=== PATIENT | male | born 2000 | race Caucasian/White ===

== ENCOUNTER 2020-12-10 16:18 | Emergency (ER) | payer BC ==
[2020-12-10 16:56] LABS: BILIRUBIN,URINE NEGATIVE (NEGATIVE); CLARITY,URINE CLEAR (CLEAR); GLUCOSE, URINE (UA) NEGATIVE (NEGATIVE); KETONES,URINE (UA) NEGATIVE (NEGATIVE); LEUKOCYTE ESTERASE, URINE NEGATIVE (NEGATIVE); NITRITE,URINE NEGATIVE (NEGATIVE); OCCULT BLOOD,URINE NEGATIVE (NEGATIVE); PROTEIN,URINE NEGATIVE (NEGATIVE); UROBILINOGEN,URINE 0.2 (NORMAL) E.U./dL (NORMAL)
--- NOTE | 2020-12-10 16:59 | ED Physician Documentation ---
History of Present Illness - Stated complaint Stated Complaint: MALE - Chief complaint Chief Complaint: General - History obtained from History obtained from: Patient - History of Present Illness Timing: Today Pain level max: 4 Pain level now: 2 - Additonal information Additional information: Patient is 20-year-old male who presents to the emergency department left testicular pain today. He states it is mild in nature, a dull ache. He states that it is "not ambient pain". He denies any change in sexual partners. Denies any dysuria, discharge. No swelling. Pain is not sharp. He was seen at the walk-in clinic and sent here for an ultrasound. Review of Systems Constitutional: denies: Fever, Chills Respiratory: denies: Cough GI: denies: Vomiting, Diarrhea : denies: Dysuria, Frequency, Hesitancy Skin: denies: Rash PD PAST MEDICAL HISTORY - Past Medical History Past Medical History: No - Past Surgical History Past Surgical History: No - Allergies Allergies/Adverse Reactions: Allergies Allergy/AdvReac Type Severity Reaction Status Date / Time No Known Drug Allergies Allergy Verified 12/10/20 16:31 PD ED PE NORMAL - Vitals Vital signs reviewed: Yes - General General: Alert and oriented X 3, No acute distress - HEENT HEENT: Moist mucous membranes - Neck Neck: Supple, no meningeal sign - Cardiac Cardiac: RRR - Respiratory Respiratory: No respiratory distress, Clear bilaterally - Male Male : Other (Normal examination of the scrotum, testicles and penis. No lesions. Normal lie. Normal cremasteric reflex.) - Derm Derm: Warm and dry - Neuro Neuro: Alert and oriented X 3 Results - Vitals Vitals: Vital Signs - 24 hr 12/10/20 12/10/20 16:27 18:11 Temperature 36.8 C Heart Rate 100 104 H Respiratory 16 14 Rate Blood Pressure 155/101 H 172/87 H O2 Saturation 100 100 Oxygen O2 Source Room air - Labs Labs: Laboratory Tests 12/10/20 16:40 Urine Color YELLOW Urine Clarity CLEAR Urine pH 6.0 Ur Specific [place] <=1.005 Urine Protein NEGATIVE Urine Glucose (UA) NEGATIVE Urine Ketones NEGATIVE Urine Occult Blood NEGATIVE Urine Nitrite NEGATIVE Urine Bilirubin NEGATIVE Urine Urobilinogen 0.2 (NORMAL) Ur Leukocyte Esterase NEGATIVE Urine RBC Cancelled Urine WBC Cancelled Urine WBC Clumps Cancelled Ur Epithelial Cells Cancelled Ur Squamous Epith Cells Cancelled Urine Crystals Cancelled Amorphous Sediment Cancelled Urine Bacteria Cancelled Urine Casts Cancelled Urine Starch Cancelled Urine Mucus Cancelled Urine Trichomonas Cancelled Urine Yeast Cancelled Urine Sperm Cancelled Ur Oval Fat Bodies Cancelled Ur Microscopic Review NOT INDICATED Urine Culture Comments NOT INDICATED - Rads (name of study) Testicular ultrasound Radiology: Prelim report reviewed, EMP read contemporaneously, See rad report (Normal scrotal ultrasound. ) PD MEDICAL DECISION MAKING - ED course Complexity details: reviewed results, re-evaluated patient, considered differential (No testicular torsion, epididymitis, mass, tumor.), d/w patient ED course: No acute findings on testicular ultrasound. No acute findings on laboratory testing. Unclear etiology. Pain is very mild in the emergency department. We will have him follow-up with his doctor for further care. Patient counseled regarding signs and symptoms for which I believe and urgent re-evaluation would be necessary. Patient with good understanding of and agreement to plan and is comfortable going home at this time This document was made in part using voice recognition software. While efforts are made to proofread this document, sound alike and grammatical errors may occur. Departure - Departure Disposition: 01 Home, Self Care Clinical Impression: Testicular pain, left Condition: Good Instructions: ED Testicular Pain [facility] Follow-Up: Your,doctor in 1 week [Other] Comments: Your ultrasound does not show any evidence of epididymitis or torsion. Your urinalysis is clear. We will see how this progresses over the next few days. Follow-up with your doctor for further care. Return if you worsen Discharge Date/Time: 12/10/20 18:13
[2020-12-10 18:12] VITALS: BP 172/87
--- NOTE | 2020-12-10 19:34 | Ultrasound Report ---
PROCEDURE: Testicle w/Doppler INDICATIONS: testicular pain TECHNIQUE: Real-time scanning was performed of the scrotum and testicles, with image documentation. Color and p ulse Doppler interrogation was performed of both testicles. COMPARISON: None. FINDINGS: Right: Testicle is normal in size at 2.3 x 3.1 x 5.4 cm, and homogenous in echotexture. Epididymis is normal in overall size and morphology. No hydrocele or varicoceles. Overlying scrotal skin is no rmal in thickness. Left: Testicle is normal in size at 2.9 x 3.0 x 5.7 cm, and homogeneous in echotexture. Epididymis is normal in overall size and morphology. No hydrocele or varicoceles. Overlying scrotal skin is no rmal in thickness. Doppler: Color and pulse Doppler demonstrate normal and symmetric arterial flow in both testicles. IMPRESSION: Normal scrotal ultrasound. Reviewed by: Nirmal Rivera MD on 12/10/2020 6:32 PM [facility] Approved by: Nirmal Rivera MD on 12/10/2020 6:32 PM [facility] Station ID: [id number]
== END 2020-12-10 18:13 | disposition home or self-care (01) ==
LOC: ED 16:18
DX: N50.812 Left testicular pain (principal)
CPT/HCPCS: 81001; 81003; 87086; 87491; 87591; 87661; 93975; 99284